=== PATIENT | male | born 1955 | race Caucasian/White ===

== ENCOUNTER 2018-02-19 18:00 | Emergency (ER) | payer OTHER, BC ==
[2018-02-19] MEDS ORDERED: cloNIDine 0.1 MG Tab PO SCH (18:45)
--- NOTE | 2018-02-19 18:53 | EDM.PDOC ---
ED HPI GENERAL MEDICAL PROBLEM - General Chief Complaint: Respiratory Problem Stated Complaint: trouble breathing Time Seen by Provider: 02/19/18 18:30 Source of Information: Reports: Patient History Limitations: Reports: No Limitations - History of Present Illness Onset: Gradual Duration: Day(s):, Getting Worse (Patient state has no difficulty breathing when awake, walking or when lying flat. He state when he falls alseep he then suddenly wakes trying to catch his breath. He states it is getting more frequent and scared him tonight which brought him to the ER) Location: Reports: Other Severity: Moderate Improves with: Reports: Other (waking up) Worsens with: Reports: Other (sleep) Associated Symptoms: Reports: Shortness of Breath. Denies: Chest Pain, Cough, cough w sputum, Diaphoresis, Fever/Chills, Headaches, Nausea/Vomiting, Rash, Weakness Treatments ADMINISTRATION INTERN: Reports: Other (see below) (Patient states he has a history of sleep apnea and has a CPAP- but does not use it b/c he can not tolerate it. ) - Related Data Allergies Allergy/AdvReac Type Severity Reaction Status Date / Time Penicillins Allergy Rash Verified 02/19/18 18:20 Home Meds: Home Meds Levothyroxine Sodium [Synthroid] 25 mcg PO ACBREAKFAST 02/19/18 [History] Lisinopril [Prinivil] 20 mg PO DAILY 02/19/18 [History] Omeprazole 20 mg PO DAILY 02/19/18 [History] Past Medical History Cardiovascular History: Reports: Hypertension Respiratory History: Reports: Sleep Apnea Gastrointestinal History: Reports: Hiatal Hernia Musculoskeletal History: Reports: None Neurological History: Reports: None Psychiatric History: Reports: None Endocrine/Metabolic History: Reports: Hypothyroidism Hematologic History: Reports: None Immunologic History: Reports: None Oncologic (Cancer) History: Reports: None Dermatologic History: Reports: None - Infectious Disease History Infectious Disease History: Reports: None - Past Surgical History Head Surgeries/Procedures: Reports: None HEENT Surgical History: Reports: Tonsillectomy Cardiovascular Surgical History: Reports: None Respiratory Surgical History: Reports: None GI Surgical History: Reports: None Endocrine Surgical History: Reports: None Neurological Surgical History: Reports: None Other Musculoskeletal Surgeries/Procedures:: L arm surgeries - ulnar shortening Oncologic Surgical History: Reports: None Dermatological Surgical History: Reports: None Social & Family History - Tobacco Use Smoking Status *Q: Never Smoker ED ROS GENERAL - Review of Systems Review Of Systems: ROS reveals no pertinent complaints other than HPI. Constitutional: Reports: No Symptoms (morbid obesity) HEENT: Reports: No Symptoms Respiratory: Reports: Other (waking with SOA) Cardiovascular: Reports: Blood Pressure Problem. Denies: Chest Pain, Dyspnea on Exertion, Edema, Lightheadedness, Orthopnea, Palpitations Endocrine: Reports: No Symptoms GI/Abdominal: Reports: No Symptoms Musculoskeletal: Reports: No Symptoms Skin: Reports: No Symptoms Neurological: Reports: No Symptoms ED EXAM, GENERAL - Physical Exam Exam: See Below Exam Limited By: No Limitations General Appearance: Alert, WD/WN, No Apparent Distress Eye Exam: Bilateral Eye: Abnormal EOM Ears: Normal External Exam Ear Exam: Bilateral Ear: Auricle Normal, Canal Normal Nose: Normal Inspection Throat/Mouth: Normal Inspection, Normal Oropharynx, Normal Voice, No Airway Compromise Neck: Normal Inspection, Supple, Non-Tender Respiratory/Chest: No Respiratory Distress, Lungs Clear, Normal Breath Sounds, No Accessory Muscle Use, Chest Non-Tender Cardiovascular: Normal Peripheral Pulses, Regular Rate, Rhythm, No Edema, No Gallop, No JVD, No Murmur, No Rub Peripheral Pulses: 4+: Carotid (L), Carotid (R), Radial (L), Radial (R), Posterior Tibial (L), Posterior Tibial (R) GI/Abdominal: Normal Bowel Sounds, Soft Neurological: Alert, Oriented, CN II-XII Intact, Normal Cognition, Normal Gait, No Motor/Sensory Deficits Psychiatric: Normal Affect, Normal Mood Skin Exam: Warm, Dry, Intact, Normal Color EKG INTERPRETATION EKG Date: 02/19/18 Rhythm: NSR [place]: Normal P-Wave: Present QRS: Normal ST-T: Normal QT: Normal Comparison: NA - No Prior EKG Course - Vital Signs Text/Narrative:: Patient had EKG, CXR and labs that included a troponin and D-dimer that were all normal. Patient has had no symptoms while in the ER. Patient was treated with clonodine and BP reduced and he was advised to F/u with Primary care SAM for BP management. He verbilized and understood d/c info Last Recorded V/S: Last Vital Signs Temp 97.5 F 02/19/18 18:02 Pulse 89 02/19/18 18:02 Resp 18 02/19/18 18:02 BP 186/93 H 02/19/18 19:11 Pulse Ox 97 02/19/18 18:02 - Orders/Labs/Meds Orders: Active Orders 24 hr Category Date Time Status Chest 2V [CR] Stat Exams 02/19/18 18:12 Taken Labs: Laboratory Tests 02/19/18 02/19/18 02/19/18 Range/Units 18:35 18:35 18:35 WBC 6.3 (5.0-10.0) 10^3/uL RBC 5.18 (4.50-6.00) 10^6/uL Hgb 15.1 (14.0-18.0) g/dL Hct 44.2 (40.0-54.0) % MCV 85.3 (82.0-94.0) fL MCH 29.2 (27.0-32.0) pg MCHC 34.2 (33.0-38.0) g/dL RDW Coeff of Radha 14.2 (11.0-15.0) % Plt Count 183 (150-400) 10^3/uL Neut % (Auto) 60.7 (35-85) % Lymph % (Auto) 23.2 (10-55) % [place] % (Auto) 12.4 (0-16) % Eos % (Auto) 2.9 (0-5) % Baso % (Auto) 0.8 (0-3) % Neut # (Auto) 3.82 (1.80-7.00) 10^3/uL Lymph # (Auto) 1.46 (1.00-4.80) 10^3/uL [place] # (Auto) 0.78 (0.00-0.80) 10^3/uL Eos # (Auto) 0.18 (0.00-0.45) 10^3/uL Baso # (Auto) 0.05 10^3/uL D-Dimer, Quantitative 0.20 (0.00-0.50) Sodium 147 H (136-145) mEq/L Potassium 4.3 (3.5-5.0) mEq/L Chloride 108 H (98-106) mEq/L Carbon Dioxide 27 (21-32) mmol/L BUN 18 (7-18) mg/dL Creatinine 1.1 (0.7-1.3) mg/dL Est Cr Clr Drug Dosing 83.03 mL/min Estimated GFR (MDRD) > 60 (>=60) mL/min Glucose 155 H (75-99) mg/dL Calcium 9.2 (8.4-10.1) mg/dL Troponin I < 0.017 (0.00-0.06) ng/mL Meds: Medications Discontinued Medications Generic Name Dose Route Start Last Admin Trade Name Freq PRN Reason Stop Dose Admin Clonidine HCl 0.1 mg 02/19/18 18:45 02/19/18 18:47 Catapres PO 0.1 mg DAILY JOSE ANGEL Administration Departure - Departure Time of Disposition: 19:12 Disposition: Home, Self-Care 01 Condition: Good Clinical Impression: Sleep apnea in adult - Discharge Information *PRESCRIPTION DRUG MONITORING PROGRAM REVIEWED*: No *COPY OF PRESCRIPTION DRUG MONITORING REPORT IN PATIENT ALEXEI: No Instructions: Sleep Apnea, [id number] Referrals: Bill Raines PA-C [Primary Care Provider] - Forms: ED Department Discharge Additional Instructions: See your Doctor that prescribed the Bipap for adjustments and to find a plan to work for you as I feel your symptoms are related to sleep apnea. Have your Blood pressure rechecked in two days and follow up with Your Primary care doctor for Blood pressure management. Return if worse. - My Orders Last 24 Hours: My Active Orders 02/19/18 18:12 Chest 2V [CR] Stat - Assessment/Plan Last 24 Hours: My Active Orders 02/19/18 18:12 Chest 2V [CR] Stat Plan: Please see digital marketing specialist of past medical history , family and social history.
[2018-02-19 18:59] LABS: CHLORIDE,CL 108 mEq/L (98-106); SODIUM,NA 147 mEq/L (136-145)
== END 2018-02-19 19:25 | disposition home or self-care (01) ==
LOC: CC.ED 18:00
DX: G47.30 Sleep apnea, unspecified (principal); I10 Essential (primary) hypertension; E03.9 Hypothyroidism, unspecified; Z79.899 Other long term (current) drug therapy; Z88.0 Allergy status to penicillin
CPT/HCPCS: 36415; 71046; 80048; 84484; 85025; 85379; 93005; 99283; A9270

== ENCOUNTER 2018-11-14 09:26 | Emergency (ER) | payer OTHER ==
[2018-11-14] MEDS ORDERED: Acetaminophen/oxyCODONE 325-5 MG Tab PO ONE (09:27)
[2018-11-14] MEDS ORDERED: Acetaminophen/HYDROcodone 325-5 MG Tab PO ONE (09:27)
--- NOTE | 2018-11-14 10:12 | EDM.PDOC ---
ED HPI GENERAL MEDICAL PROBLEM - General Chief Complaint: General Stated Complaint: right lower side/back pain Time Seen by Provider: 11/14/18 09:46 Source of Information: Reports: Patient History Limitations: Reports: No Limitations - History of Present Illness INITIAL COMMENTS - FREE TEXT/NARRATIVE: This patient is a 63 year old male that presents to the ER. Patient reports that since Thursday he has had right lower back pain. Patient reports that the pain comes and goes. Patient reports that it feels like a sharp, burning, grabbing pain to the right lower back. He denies it radiating anywhere. He reports that its not there constantly. He reports that nothing makes it better or worse, it just comes and goes without causes. He reports he went mountain biking, and it did not make the pain worse. The patient reports that movement does not make the pain better or worse. Patient reports pain is down in lower right back at flank location. Patient denies urinary/bowel changes. The patient denies mitchell, dizziness, n, v, d, f, chest pain, shortness of breath, abd pain. Patietn denies radiation of pain to legs or numbness/tingling to leg or buttock. Patient ambulatory in the department without complaint. Onset Date: 11/08/18 Duration: Day(s): (6) Location: Reports: Back Quality: Reports: Burning, Stabbing Severity: Moderate Improves with: Reports: None Worsens with: Reports: None Associated Symptoms: Denies: Confusion, Chest Pain, Cough, cough w sputum, Diaphoresis, Fever/Chills, Headaches, Loss of Appetite, Malaise, Nausea/Vomiting , Rash, Seizure, Shortness of Breath, Syncope, Weakness Right Lower Back Pain Score (Numeric/FACES): 6 - Related Data Allergies Allergy/AdvReac Type Severity Reaction Status Date / Time Penicillins Allergy Rash Verified 11/14/18 09:33 Home Meds: Home Meds Lisinopril [Prinivil] 40 mg PO DAILY 02/19/18 [History] Omeprazole 20 mg PO DAILY 02/19/18 [History] Fexofenadine/Pseudoephedrine [Yue-D 12 Hour Tablet] 1 tab PO Q12H PRN [History] metFORMIN [Glucophage] 1,000 mg PO BID 11/14/18 [History] Past Medical History Cardiovascular History: Reports: Hypertension Respiratory History: Reports: Sleep Apnea Gastrointestinal History: Reports: Hiatal Hernia Genitourinary History: Reports: Other (See Below) Other Genitourinary History: kidney stones 20 years ago Musculoskeletal History: Reports: None Neurological History: Reports: None Psychiatric History: Reports: None Endocrine/Metabolic History: Reports: Diabetes, Type II, Hypothyroidism Hematologic History: Reports: None Immunologic History: Reports: None Oncologic (Cancer) History: Reports: None Dermatologic History: Reports: None - Infectious Disease History Infectious Disease History: Reports: None - Past Surgical History Head Surgeries/Procedures: Reports: None HEENT Surgical History: Reports: Tonsillectomy Cardiovascular Surgical History: Reports: None Respiratory Surgical History: Reports: None GI Surgical History: Reports: None, Hernia Repair/Other Endocrine Surgical History: Reports: None Neurological Surgical History: Reports: None Other Musculoskeletal Surgeries/Procedures:: L arm surgeries - ulnar shortening Oncologic Surgical History: Reports: None Dermatological Surgical History: Reports: None Social & Family History - Tobacco Use Smoking Status *Q: Never Smoker - Recreational Drug Use Recreational Drug Use: No ED ROS GENERAL - Review of Systems Review Of Systems: See Below Constitutional: Reports: No Symptoms HEENT: Reports: No Symptoms Respiratory: Reports: Cough (chronic, on omar inhibitor. ). Denies: Shortness of Breath, Wheezing, Pleuritic Chest Pain, Sputum, Hemoptysis Cardiovascular: Reports: No Symptoms. Denies: Chest Pain, Dyspnea on Exertion, Edema, Lightheadedness, Palpitations, Syncope Endocrine: Reports: No Symptoms GI/Abdominal: Reports: No Symptoms. Denies: Abdominal Pain, Black Stool, Bloody Stool, Constipation, Diarrhea, Distension, Flatus, Nausea, Vomiting : Reports: Flank Pain (right). Denies: Discharge, Dysuria, Frequency, Hematuria, Incontinence, Urgency, Urinary Retention Musculoskeletal: Reports: No Symptoms, Back Pain (right lower). Denies: Neck Pain, Shoulder Pain, Arm Pain, Hand Pain, Leg Pain, Foot Pain, Joint Pain, Joint Swelling Skin: Reports: No Symptoms Neurological: Reports: No Symptoms. Denies: Confusion, Dizziness, Headache, Numbness, Seizure, Syncope, Tingling, Tremors, Trouble Speaking, Difficulty Walking, Weakness, Change in Speech, Gait Disturbance Psychiatric: Reports: No Symptoms Hematologic/Lymphatic: Reports: No Symptoms Immunologic: Reports: No Symptoms ED EXAM, GENERAL - Physical Exam Exam: See Below Exam Limited By: No Limitations General Appearance: Alert, WD/WN, No Apparent Distress Eye Exam: Bilateral Eye: Normal Inspection, PERRL Ears: Normal External Exam, Normal Canal, Hearing Grossly Normal, Normal TMs Ear Exam: Bilateral Ear: Auricle Normal, Canal Normal, TM normal Nose: Normal Inspection, Normal Mucosa, No Blood Throat/Mouth: Normal Inspection, Normal Lips, Normal Teeth, Normal Gums, Normal Oropharynx, Normal Voice, No Airway Compromise Head: Atraumatic, Normocephalic Neck: Normal Inspection, Supple, Non-Tender, Full Range of Motion Respiratory/Chest: No Respiratory Distress, Lungs Clear, Normal Breath Sounds, No Accessory Muscle Use, Chest Non-Tender Cardiovascular: Normal Peripheral Pulses, Regular Rate, Rhythm, No Edema, No Gallop, No JVD, No Murmur, No Rub Peripheral Pulses: 2+: Radial (L), Radial (R), Posterior Tibial (L), Posterior Tibial (R) GI/Abdominal: Normal Bowel Sounds, Soft, Non-Tender, No Organomegaly, No Distention, No Abnormal Bruit, No Mass, Pelvis Stable. No: Distended, Guarding , Rigid, Rebound, Tender, Abnormal Bowel Sounds, Hernia, Mass, Hepatomegaly, Splenomegaly (Male) Exam: Deferred Rectal (Males) Exam: Deferred Back Exam: Normal Inspection, Full Range of Motion, CVA Tenderness (R) (Reports does "feel it, but not painful"). No: CVA Tenderness (L), Decreased Range of Motion, Muscle Spasm, Paraspinal Tenderness, Vertebral Tenderness Extremities: Normal Inspection, Normal Range of Motion, Non-Tender, No Pedal Edema, Normal Capillary Refill Neurological: Alert, Oriented, Normal Cognition, Normal Gait, No Motor/Sensory Deficits Psychiatric: Normal Affect, Normal Mood Skin Exam: Warm, Dry, Intact, Normal Color, No Rash Lymphatic: No Adenopathy EKG INTERPRETATION EKG Date: 11/14/18 Time: 10:54 Rhythm: NSR Rate (Beats/Min): 72 P-Wave: Present QRS: Normal ST-T: Normal Course - Vital Signs Last Recorded V/S: Last Vital Signs Temp 98.2 F 11/14/18 09:29 Pulse 76 11/14/18 09:29 Resp 20 09/22/19 09:29 BP 150/91 H 11/14/18 09:29 Pulse Ox 96 11/14/18 09:29 - Orders/Labs/Meds Orders: Active Orders 24 hr Category Date Time Status Abdomen Pelvis wo Cont [CT] Stat Exams 11/14/18 10:34 Taken Labs: Laboratory Tests 11/14/18 11/14/18 11/14/18 Range/Units 09:38 09:38 09:56 WBC 6.5 (5.0-10.0) 10^3/uL RBC 5.09 (4.50-6.00) 10^6/uL Hgb 14.8 (14.0-18.0) g/dL Hct 44.4 (40.0-54.0) % MCV 87.2 (82.0-94.0) fL MCH 29.1 (27.0-32.0) pg MCHC 33.3 (33.0-38.0) g/dL RDW Coeff of Radha 13.7 (11.0-15.0) % Plt Count 224 (150-400) 10^3/uL Neut % (Auto) 66.0 (35-85) % Lymph % (Auto) 19.8 (10-55) % [place] % (Auto) 10.9 (0-16) % Eos % (Auto) 2.5 (0-5) % Baso % (Auto) 0.8 (0-3) % Neut # (Auto) 4.32 (1.80-7.00) 10^3/uL Lymph # (Auto) 1.29 (1.00-4.80) 10^3/uL [place] # (Auto) 0.71 (0.00-0.80) 10^3/uL Eos # (Auto) 0.16 (0.00-0.45) 10^3/uL Baso # (Auto) 0.05 10^3/uL Sodium 139 (136-145) mEq/L Potassium 4.2 (3.5-5.0) mEq/L Chloride 103 (98-106) mEq/L Carbon Dioxide 27 (21-32) mmol/L BUN 15 (7-18) mg/dL Creatinine 1.1 (0.7-1.3) mg/dL Est Cr Clr Drug Dosing 81.99 mL/min Estimated GFR (MDRD) > 60 (>=60) mL/min Glucose 141 H D (75-99) mg/dL Calcium 9.1 (8.4-10.1) mg/dL Total Bilirubin 0.6 (0.0-1.0) mg/dL AST 19 (15-37) U/L ALT 36 (12-78) U/L Alkaline Phosphatase 43 L (46-116) U/L Troponin I (0.00-0.06) ng/mL Total Protein 6.9 (6.4-8.2) g/dL Albumin 3.9 (3.4-5.0) g/dL Amylase 58 (25-115) U/L Lipase 105 (73-393) U/L Urine Color Yellow (YELLOW) Urine Appearance Clear (CLEAR) Urine pH 5.5 (4.5-8.0) Ur Specific [place] <= 1.005 (1.003-1.020) Urine Protein Negative (NEGATIVE) mg/dL Urine Glucose (UA) Negative (NEGATIVE) mg/dL Urine Ketones Negative (NEGATIVE) mg/dL Urine Occult Blood Negative (NEGATIVE) Urine Nitrite Negative (NEGATIVE) Urine Bilirubin Negative (NEGATIVE) Urine Urobilinogen 0.2 (0.2-1.0) EU/dL Ur Leukocyte Esterase Negative (NEGATIVE) 11/14/18 Range/Units 10:48 WBC (5.0-10.0) 10^3/uL RBC (4.50-6.00) 10^6/uL Hgb (14.0-18.0) g/dL Hct (40.0-54.0) % MCV (82.0-94.0) fL MCH (27.0-32.0) pg MCHC (33.0-38.0) g/dL RDW Coeff of Radha (11.0-15.0) % Plt Count (150-400) 10^3/uL Neut % (Auto) (35-85) % Lymph % (Auto) (10-55) % [place] % (Auto) (0-16) % Eos % (Auto) (0-5) % Baso % (Auto) (0-3) % Neut # (Auto) (1.80-7.00) 10^3/uL Lymph # (Auto) (1.00-4.80) 10^3/uL [place] # (Auto) (0.00-0.80) 10^3/uL Eos # (Auto) (0.00-0.45) 10^3/uL Baso # (Auto) 10^3/uL Sodium (136-145) mEq/L Potassium (3.5-5.0) mEq/L Chloride (98-106) mEq/L Carbon Dioxide (21-32) mmol/L BUN (7-18) mg/dL Creatinine (0.7-1.3) mg/dL Est Cr Clr Drug Dosing mL/min Estimated GFR (MDRD) (>=60) mL/min Glucose (75-99) mg/dL Calcium (8.4-10.1) mg/dL Total Bilirubin (0.0-1.0) mg/dL AST (15-37) U/L ALT (12-78) U/L Alkaline Phosphatase (46-116) U/L Troponin I < 0.017 (0.00-0.06) ng/mL Total Protein (6.4-8.2) g/dL Albumin (3.4-5.0) g/dL Amylase (25-115) U/L Lipase (73-393) U/L Urine Color (YELLOW) Urine Appearance (CLEAR) Urine pH (4.5-8.0) Ur Specific [place] (1.003-1.020) Urine Protein (NEGATIVE) mg/dL Urine Glucose (UA) (NEGATIVE) mg/dL Urine Ketones (NEGATIVE) mg/dL Urine Occult Blood (NEGATIVE) Urine Nitrite (NEGATIVE) Urine Bilirubin (NEGATIVE) Urine Urobilinogen (0.2-1.0) EU/dL Ur Leukocyte Esterase (NEGATIVE) Meds: Medications Discontinued Medications Generic Name Dose Route Start Last Admin Trade Name Freq PRN Reason Stop Dose Admin Ketorolac Tromethamine 60 mg 11/14/18 12:01 11/14/18 12:24 Toradol IM 11/14/18 12:02 60 mg ONETIME ONE Administration Oxycodone/Acetaminophen 3 packet 11/14/18 12:03 11/14/18 12:23 Take Home: Acetaminophen/Oxycodon, 2 Tab Pack PO 11/14/18 12:04 3 packet ONETIME ONE Administration Tamsulosin HCl 0.4 mg 11/14/18 12:03 11/14/18 12:23 Flomax PO 11/14/18 12:04 0.4 mg ONETIME ONE Administration - Radiology Interpretation Free Text/Narrative:: CT renal: 4mm nonobstructing stone lower pole left kidney, no hydronephrosis or ureter calculus on either side. 2.4cm gallstone. No pericholecystic inflammatory change. Possible nondisplaced fracture verses nutrient foramen at the medial aspect of right rib 12. - Re-Assessments/Exams Free Text/Narrative Re-Assessment/Exam: 11/14/18 10:17 Patient pain is not manipulated on exam. Other than some mild "feel it" with CVA. Therefore, added a troponin and ekg. 11/14/18 12:[address] report and labs, discussed with patient. He is not tender on exam over the 12th rib. Patient labs are unremarkable. Possible cause of pain could be gallstone. Patient educated to followup with primary care provider for further evaluation of this. Will discharge home on pain medication. No fever, no vomiting, no abnormal labs. Hemodynamically stable. No evidence of AAA. Patient pain for 6 days. Will discharge patient, followup with PCP Thursday recommended. Departure - Departure Time of Disposition: 12:16 Disposition: Home, Self-Care 01 Condition: Fair Clinical Impression: Kidney stone Gallstone Qualifiers: Cholecystitis presence: without cholecystitis Biliary obstruction: without biliary obstruction Qualified Code(s): K80.20 - Calculus of gallbladder without cholecystitis without obstruction Back pain Qualifiers: Back pain location: low back pain Chronicity: acute Back pain laterality: right Sciatica presence: without sciatica Qualified Code(s): M54.5 - Low back pain - Discharge Information *PRESCRIPTION DRUG MONITORING PROGRAM REVIEWED*: No *COPY OF PRESCRIPTION DRUG MONITORING REPORT IN PATIENT ALEXEI: No Instructions: Acute Back Pain, Adult, Kidney Stones, [id number], Cholelithiasis, [id number] Referrals: Bill Raines PA-C [Primary Care Provider] - Forms: ED Department Discharge Additional Instructions: Followup with your primary care provider Thursday/Thursday Return to the ER for worsening of condition or any emergent concerns such as skin turning yellow, increase in pain, fever, vomiting, abdominal pain Eat smaller meals. Avoid large meals, greasy foods, fatty foods, spicy foods Percocet 5/325mg 1-2 pills every 4-6 hours as needed for pain #6 take home, #12 no refill Take with food Followup with Tahir Raines for further evaluation of your ct scan result that included: kidney stone, gallstone, possible rib fracture - My Orders Last 24 Hours: My Active Orders 11/14/18 10:34 Abdomen Pelvis wo Cont [CT] Stat - Assessment/Plan Last 24 Hours: My Active Orders 11/14/18 10:34 Abdomen Pelvis wo Cont [CT] Stat Plan: PLEASE SEE RN NOTE FOR PFSH.
[2018-11-14 10:16] LABS: CHLORIDE,CL 103 mEq/L (98-106); SODIUM,NA 139 mEq/L (136-145)
[2018-11-14] MEDS ORDERED: Ketorolac 60 MG/2 ML SDV IM ONE (12:01)
[2018-11-14] MEDS ORDERED: Tamsulosin 0.4 MG Cap.ER PO ONE (12:03)
[2018-11-14] MEDS ORDERED: Take Home: Acetaminophen/oxyCODONE 325-5 MG, 2 Tab Pack PO ONE (12:03)
== END 2018-11-14 12:36 | disposition home or self-care (01) ==
LOC: CC.ED 09:26
DX: N20.0 Calculus of kidney (principal); K80.20 Calculus of gallbladder without cholecystitis without obstruction; M54.5 Low back pain; I10 Essential (primary) hypertension; E11.9 Type 2 diabetes mellitus without complications; Z79.84 Long term (current) use of oral hypoglycemic drugs; Z79.899 Other long term (current) drug therapy; Z98.890 Other specified postprocedural states; Z88.0 Allergy status to penicillin
CPT/HCPCS: 36415; 74176; 80053; 81003; 82150; 83690; 84484; 85025; 93005; 96372; 99284; 99284-25; A9270-GY; J1885

== ENCOUNTER 2021-11-14 14:01 | Emergency (ER) | payer OTHER ==
[2021-11-14] MEDS: Ketorolac 30 MG/ML SDV IVPUSH ONE (14:28)
[2021-11-14] MEDS: Ondansetron 4 MG/2 ML SDV IVPUSH PRN (14:29)
[2021-11-14] MEDS: Sodium Chloride 0.9% 1,000 ML IV ONE ×2 (14:29→15:24)
[2021-11-14 14:57] LABS: CHLORIDE,CL 103 mEq/L (98-106); SODIUM,NA 141 mEq/L (136-145)
[2021-11-14 14:58] LABS: ESTIMATED GFR 52 mL/min (>=60)
[2021-11-14] MEDS: HYDROmorphone 1 MG/ML Syringe IVPUSH ONE (15:05)
[2021-11-14] MEDS: Acetaminophen/HYDROcodone 325-5 MG Tab PO ONE (15:41)
[2021-11-14] MEDS: Tamsulosin 0.4 MG Cap.ER PO ONE (15:41)
== END 2021-11-14 17:15 | disposition home or self-care (01) ==
LOC: CC.ED 14:01
DX: N20.0 Calculus of kidney (principal); I10 Essential (primary) hypertension; E11.9 Type 2 diabetes mellitus without complications; Z88.0 Allergy status to penicillin; Z79.899 Other long term (current) drug therapy; Z79.84 Long term (current) use of oral hypoglycemic drugs
CPT/HCPCS: 36415; 74176; 80053; 81001; 85025; 86140; 96361; 96374; 96375; 99284; 99284-25; A9270-GY; J1170; J1885; J2405; J7030